=== PATIENT | male | born 1980 | race Caucasian/White ===

== ENCOUNTER 2018-03-09 19:32 | Emergency (ER) | payer OTHER | END 2018-03-09 21:29 | disposition home or self-care (01) | LOC: M ED 19:32 | DX: S86.902A Unspecified injury of unspecified muscle(s) and tendon(s) at lower leg level, left leg, initial encounter (principal); X58.XXXA Exposure to other specified factors, initial encounter; Y92.89 Other specified places as the place of occurrence of the external cause; M54.9 Dorsalgia, unspecified; Z79.899 Other long term (current) drug therapy | CPT/HCPCS: 93971 ==